=== PATIENT | female | born 1985 | race Caucasian/White ===

== ENCOUNTER 2016-10-04 11:41 | Outpatient (CLI) ==
[2016-02-22 11:47] VITALS: BMI 23.3
--- NOTE | 2016-10-04 12:57 | DI ---
EXAM: PA and lateral views of the chest HISTORY: Follow up pneumonia COMPARISON: Chest x-ray 03/09/[address] chest 03/24/2016 FINDINGS: The cardiomediastinal silhouette is normal. There is no pneumothorax or pleural effusion . There is no consolidation, nodule or mass. Mild ground-glass in the left lower lobe seen on prio r CT is not identified on today's chest x-ray. The osseous structures are unremarkable. IMPRESSION: No acute cardiopulmonary process or consolidation.
== END 2016-10-04 11:42 | disposition home or self-care (01) ==
LOC: RAD 11:41
PROVIDERS: ATTEND Internal Medicine
DX: J18.9 Pneumonia, unspecified organism (principal)

== ENCOUNTER 2018-02-23 11:07 | Outpatient (CLI) ==
[2016-02-22 11:47] VITALS: BMI 23.3
--- NOTE | 2018-02-23 13:20 | DI ---
EXAM: Two views of the right hip. History: Right hip pain. Findings: No acute fracture or dislocation. No abnormal calcifications or radiopaque foreign bodies . Intrauterine device is seen within the pelvis. Impression: Unremarkable exam
--- NOTE | 2018-02-23 13:21 | DI ---
EXAM: Two views of the left hip. History: Left hip pain. Findings: No acute fracture or dislocation. Joint spaces are preserved. Intrauterine device is see n within the pelvis. Impression: Unremarkable exam
== END 2018-02-23 11:08 | disposition home or self-care (01) ==
LOC: RAD 11:07
PROVIDERS: ATTEND Internal Medicine
DX: M25.551 Pain in right hip (principal); M25.552 Pain in left hip

== ENCOUNTER 2019-01-21 10:12 | Outpatient (CLI) ==
[2016-02-22 11:47] VITALS: BMI 23.3
--- NOTE | 2019-01-21 10:52 | DI ---
EXAM: Three views of the lumbar spine. History: Lower back pain. Findings: Intrauterine device is seen in the pelvis. No acute fracture or subluxation of the lumbar spine. Mild disc space narrowing at L5-S1. The other disc space heights are preserved. Mild facet hypertrophy at L5-S1. Impression: 1. No acute osseous abnormality of the lumbar spine. 2. Mild degenerative disc disease at L5-S1
--- NOTE | 2019-01-21 10:54 | DI ---
EXAM: Three views of the left wrist. History: Left wrist pain. Findings: No acute fracture or dislocation. No abnormal calcifications or radiopaque foreign bodies . Joint spaces are preserved. Impression: Unremarkable exam
== END 2019-01-21 10:13 | disposition home or self-care (01) ==
LOC: RAD 10:12
PROVIDERS: ATTEND Internal Medicine
DX: M54.5 Low back pain (principal); M25.532 Pain in left wrist